=== PATIENT | male | born 1975 | race Caucasian/White ===

== ENCOUNTER 2022-09-29 20:26 | Emergency (ER) | payer OTHER, SELFPAY ==
[2022-09-29 20:29] VITALS: BP 108/64; PULSE 85; RESP 16; TEMP 36.3; O2SAT 98; BMI 25.7
--- NOTE | 2022-09-29 20:54 | DI.RAD.S_ITS ---
PROCEDURE: XR SHOULDER RT MIN 2V INDICATIONS: Fall, shoulder injury, decreased ROM TECHNIQUE: 3 views of the shoulder were acquired. COMPARISON: None. FINDINGS: Bones: No fractures or dislocations. No suspicious bony lesions. Visualized ribs appear intact. Soft tissues: No suspicious soft tissue calcifications. IMPRESSION: 1. No fracture or dislocation. Dictated by: Abdoul Astorga M.D. on 09/29/2022 at 21:55 Approved by: Abdoul Astorga M.D. on 09/29/2022 at 21:56
--- NOTE | 2022-09-29 22:10 | ED_ITS ---
HPI - General Adult General Chief complaint: Extremity Injury, Upper Stated complaint: multiple injuries s/p fall Time Seen by Provider: 09/29/22 21:36 Source: patient Mode of arrival: Ambulatory History of Present Illness HPI narrative: Patient is a 47-year-old male who is here for evaluation of a right shoulder injury. He states he was running today and he felt like that his legs locked up and he fell forward and landed on his right shoulder. He is had difficulty with moving the right shoulder since then. No head pain. No loss of consciousness. No left upper extremity tenderness. He also states he is having bilateral hamstring discomfort is causing him pain with walking. Review of Systems Constitutional Constitutional: Reports system reviewed and no additional complaints, except as documented Musculoskeletal Musculoskeletal: Reports system reviewed and no additional complaints, except as documented Integumentary/Breasts Skin/Breast: Reports system reviewed and no additional complaints, except as documented Neurologic Neurologic: Reports system reviewed and no additional complaints, except as documented Hematologic/Lymphatic On Anticoagulants: No Exam Initial Vital Signs Initial Vital Signs: Vital Signs Temperature 97.3 F L 09/29/22 20:29 Pulse Rate 85 09/29/22 20:29 Respiratory Rate 16 09/29/22 20:29 Blood Pressure 108/64 09/29/22 20:29 Pulse Oximetry 98 09/29/22 20:29 Oxygen Delivery Method Room Air 09/29/22 20:29 HENMT Head: normal to inspection and normocephalic Cardio Pulses: radial pulses present on the right Skin General: no rashes or lesions noted Neuro General: patient alert and patient awake Extrem Other: Patient has no AC joint tenderness. He does have tenderness throughout palpation of the rest of his right shoulder and difficulty moving the right shoulder. Course Orders Ordered: ED Orders 09/29/22 20:54 XR shoulder RT min 2V Stat Discontinued Medications Hydrocodone Bitart/Acetaminophen (Hydrocodone/Acet 5/325 Prepack) 1 bottle MISC SEEINSTR ONE Stop: 09/29/22 22:23 Last Admin: 09/29/22 22:28 Dose: 1 bottle Documented By: MAULIK Vital Signs Vital signs: Vital Signs - 8 hr 09/29/22 20:29 09/29/22 22:34 Temperature 97.3 F L Pulse Rate 85 81 Respiratory Rate 16 16 Blood Pressure 108/64 105/62 Pulse Oximetry 98 99 Oxygen Delivery Method Room Air Room Air Medical Decision Making Imaging Data Extremity x-ray #1: Radiologist's Impression: PROCEDURE:? XR SHOULDER RT MIN 2V ? INDICATIONS:? Fall, shoulder injury, decreased ROM ? TECHNIQUE:? 3 views of the shoulder were acquired.? ? COMPARISON:? None. ? FINDINGS:? ? Bones:? No fractures or dislocations.? No suspicious bony lesions.? Visualized ribs appear intact.? ? Soft tissues:? No suspicious soft tissue calcifications.? ? IMPRESSION:? ? 1. No fracture or dislocation. MDM Narrative Medical decision making narrative: Patient is neurovascularly intact. No fractures no dislocations noted on the x- rays. He does have somewhat of a high-riding humerus which makes me somewhat concerned about a rotator cuff injury. No other radiologic studies needed. He was placed in a sling for comfort however we did discuss the importance of coming out of the sling and moving his shoulder as tolerated. He potentially could need follow-up with either physical therapy or orthopedic surgery. He was given return precautions. Discharge Plan Departure Patient Disposition: Home Clinical Impression: Injury of shoulder Instructions: DI for Shoulder Pain Activity Restrictions/Additional Instructions: There were no fractures or dislocations noted on the x-ray. This means that you can move your shoulder as tolerated. The sling is for your comfort. I recommend that you try to spend some time outside of the sling doing the pendulum swings with your arm like we discussed. Contact your primary doctor for follow-up as you may need further evaluation to include a referral to see Physical therapy. Referrals: Ananya Dumont ARNP [Primary Care Provider] - Stand Alone Forms: Patient Portal/API
[2022-09-29] MEDS: HYDROCODONE/ACET 5/325 PREPACK 1 BOTTLE MISC (22:28)
[2022-09-29 22:34] VITALS: BP 105/62; PULSE 81; RESP 16; O2SAT 99
== END 2022-09-29 22:35 | disposition home or self-care (01) ==
PROVIDERS: Emergency Provider Emergency Medicine; PCP Nurse Practitioner Family
DX: S49.91XA Unspecified injury of right shoulder and upper arm, initial encounter (principal); W18.30XA Fall on same level, unspecified, initial encounter
CPT/HCPCS: 73030; 99282; 99283